=== PATIENT | female | born 1995 | race Caucasian/White ===

== ENCOUNTER 2016-07-17 05:02 | Emergency (ER) | payer BC ==
[2016-07-17 05:27] LABS: Urine Bacteria 1+ (Absent); Urine Bilirubin Negative (Negative); Urine Glucose Negative (Negative); Urine Nitrite Negative (Negative)
[2016-07-17 05:57] LABS: Manual Entry Verification LOR0008; UR Preg Internal Control QC Line Present
[2016-07-17 06:47] LABS: Urine Bacteria Absent (Absent); Urine Bilirubin Negative (Negative); Urine Glucose Negative (Negative); Urine Nitrite Negative (Negative)
[2016-07-17] MEDS ORDERED: Ciprofloxacin TAB* 500 MG PO ONE (06:52)
--- NOTE | 2016-07-17 06:56 | ED ---
I, Oh,Daniel, scribed for Guerrero Zepeda MD on 07/17/16 at 0627 . GI/ HPI - HPI Summary HPI Summary: This 21 y/o female presents to ED for acute on recurrent UTI since 2 days ago. She reports burning with urination, increased urinary frequency, and burning/ itching in genital area since 2 days ago. She decided to visit ED when symptoms worsens about 2 hours ago and wasn't able to tolerate the symptoms. Pt denies any back pain and any likelihood of . LMP is a month ago. PMHx is significant for recurrent UTI, appy, and asthma. Rare drinker and nonsmoker. FHx is positive for HTHN to father. - History of Current Complaint Chief Complaint: EDUrogenitalProblems Time Seen by Provider: 07/17/16 06:02 Stated Complaint: POSS UTI Hx Obtained From: Patient, Family/[employer] - mother present at bedside Onset/Duration: Started Days Ago - 2 days, Atraumatic, Still Present Pain Intensity: 3 Location of Pain: Groin Pain Characteristics: Burning, Itching Associated Signs and Symptoms: Positive: Dysuria - burning with urination. Negative: Back Pain, Fever Aggravating Factor(s): Nothing Alleviating Factor(s): Nothing - Allergy/Home Medications Allergies/Adverse Reactions: Allergies Allergy/AdvReac Type Severity Reaction Status Date / Time Sulfamethoxazole AdvReac Vomiting Verified 10/13/15 20:13 w/Trimethoprim [From Bactrim] PMH/Surg Hx/FS Hx/Imm Hx History: Reports: Other Problems/Disorders - Recurrent UTI Infectious Disease History: No Infectious Disease History: Denies: History Other Infectious Disease, Traveled Outside the [place] in Last 30 Days - Family History Known Family History: Positive: Hypertension - father - Social History Alcohol Use: Rare Hx Substance Use: No Substance Use Type: Reports: None Hx Tobacco Use: No Smoking Status (MU): Never Smoked Tobacco Review of Systems Negative: Fever Positive: dysuria, frequency - increased, other - itching and burning All Other Systems Reviewed And Are Negative: Yes Physical Exam - Summary Physical Exam Summary: Vital signs: reviewed General: Patient is comfortable lying in stretcher with no signs of distress HEENT: within normal limits Lungs: CTA B/L CVS: S1 & S2 present. No murmurs appreciated. ABDOMEN: Soft, non-tender. No signs of distention. No rebound no guarding, and no masses palpated. Bowel sounds are normal. EXTREMITIES: FROM in all major joints, no edema, no cyanosis or clubbing. NEURO: Alert and oriented x 3. No acute neurological deficits. Speech is normal and follows commands. SKIN: Dry and warm Triage Information Reviewed: Yes Vital Signs On Initial Exam: Initial Vitals Temp Pulse Resp BP Pulse Ox 97.8 F 65 17 125/62 100 07/17/16 05:16 07/17/16 05:16 07/17/16 05:16 07/17/16 05:16 07/17/16 05:16 Vital Signs Reviewed: Yes Diagnostics - Vital Signs Vital Signs Temp Pulse Resp BP Pulse Ox 07/17/16 05:16 97.8 F 65 17 125/62 100 - Laboratory Lab Results: Lab Results 07/17/16 07/17/16 Range/Units 05:14 05:49 Urine Color Yellow Urine Appearance Cloudy Urine pH 5.0 (5-9) Ur Specific [place] 1.021 (1.010-1.030) Urine Protein Negative (Negative) Urine Ketones Negative (Negative) Urine Blood 2+ H (Negative) Urine Nitrate Negative (Negative) Urine Bilirubin Negative (Negative) Urine Urobilinogen Negative (Negative) Ur Leukocyte Esterase 3+ H (Negative) Urine WBC (Auto) 3+(>20/hpf) H (Absent) Urine RBC (Auto) 3+(>10/hpf) H (Absent) Ur Squamous Epith Cells Present H (Absent) Urine Bacteria 1+ H (Absent) Urine Glucose Negative (Negative) Urine Test Negative (Negative) Lab Statement: Any lab studies that have been ordered have been reviewed, and results considered in the medical decision making process. Re-Evaluation - Re-Evaluation First Eval Re-Evaluation Time: 06:55 GIGU Course/Dx - Course Assessment/Plan: This 21 y/o female presents to ED for acute on recurrent UTI since 2 days ago. She reports burning with urination, increased urinary frequency, and burning/itching in genital area since 2 days ago. She decided to visit ED when symptoms worsens about 2 hours ago and wasn't able to tolerate the symptoms. Pt denies any back pain and any likelihood of . LMP is a month ago. PMHx is significant for recurrent UTI, appendectomy, and asthma. Rare drinker and nonsmoker. FHx is positive for HTHN to father. UA. In the ED course she was Ciprofloxacin and she will be given a prescription for Ciprofloxacin for 5 days. I discussed all the findings and test results with the patient. Patient was instructed to return to the emergency room immediately if any of the symptoms return or worsens. Plan of care was discussed with the patient and understands and agrees. All questions were answered at patient satisfaction. There were no further complaints or concerns. Lung exam before discharge: CTA B/L. Good air exchange. No wheezing or crackles heard. CVS: S1 and S2 present. No murmurs appreciated. Patient is alert and oriented x 3. Patient is hemodynamically stable. Patient will be discharged home with follow up PCP in the next 2-3 days - Diagnoses Differential Diagnoses - Female: STD, Urinary Tract Infection, Vaginitis Provider Diagnoses: UTI (urinary tract infection) Discharge - Discharge Plan Condition: Stable Disposition: HOME Prescriptions: Ciprofloxacin TAB* [Cipro 500 MG TAB*] 500 mg PO BID #5 tab Patient Education Materials: Urinary Tract Infection in Women (ED), Ciprofloxacin (By mouth) Referrals: [facility] [Outside] - 2 Days The documentation as recorded by the Javed burgos Soohyun accurately reflects the service I personally performed and the decisions made by me, Guerrero Zepeda MD.
[2016-07-17 07:08] VITALS: BP 114/58
--- NOTE | 2016-07-19 06:44 | PN ---
Progress Note - Progress Note Note: Preliminary urine culture results grew few E.coli. Patient was treated with Ciprofloxacin due to urinalysis results significant for UTI. Will wait for final culture results. No changes needed at this time.
== END 2016-07-17 07:06 | disposition home or self-care (01) ==
LOC: ED 05:02
DX: N39.0 Urinary tract infection, site not specified (principal); R30.0 Dysuria
CPT/HCPCS: 81003; 81015; 81025; 87077; 87086; 87186; 99282; A9270-GY

== ENCOUNTER 2016-09-15 21:24 | Emergency (ER) | payer BC ==
[2016-09-15] MEDS ORDERED: DOXYcycline CAP(*) 100 MG PO ONE (22:24)
[2016-09-15 22:47] VITALS: BP 126/64
--- NOTE | 2016-09-16 00:04 | ED ---
Virgilio Mcnamara Alok, scribed for Josseline Garnett MD on 09/15/16 at 2228 . Skin Complaint - HPI Summary HPI Summary: 21F presents to the ED for a tick bite, first discovered this evening on the right leg but most likely exposed at 1300 this afternoon. Pt states she removed the tick bite herself. Tick is not available for observation. - History of Current Complaint Chief Complaint: EDExtremityLower Time Seen by Provider: 09/15/16 22:20 Stated Complaint: TICK BITE Hx Obtained From: Patient Hx Last Menstrual Period: 08/04/14 Onset/Duration: Started Hours Ago, Atraumatic, Resolved Skin Exposure Onset/Duration: Hours Ago Timing: Constant Onset Severity: Moderate Current Severity: Moderate Pain Intensity: 0 Pain Scale Used: 0-10 Numeric Skin Location: Leg Character: Redness Aggravating Symptom(s): Nothing Alleviating Symptom(s): Nothing Associated Signs & Symptoms: Negative Related History: Insect Bite/Sting - Allergy/Home Medications Allergies/Adverse Reactions: Allergies Allergy/AdvReac Type Severity Reaction Status Date / Time Sulfamethoxazole AdvReac Vomiting Verified 09/15/16 21:29 w/Trimethoprim [From Bactrim] PMH/Surg Hx/FS Hx/Imm Hx History: Reports: Other Problems/Disorders - Recurrent UTI Infectious Disease History: Denies: History Other Infectious Disease, Traveled Outside the [place] in Last 30 Days - Family History Known Family History: Positive: Hypertension - father - Social History Alcohol Use: Rare Hx Substance Use: No Substance Use Type: Reports: None Hx Tobacco Use: No Smoking Status (MU): Never Smoked Tobacco Review of Systems Negative: Fever Positive: Other - tick bite right leg All Other Systems Reviewed And Are Negative: Yes Physical Exam Triage Information Reviewed: Yes Vital Signs On Initial Exam: Initial Vitals Temp Pulse Resp BP Pulse Ox 98.3 F 85 16 134/68 100 09/15/16 21:25 09/15/16 21:25 09/15/16 21:25 09/15/16 21:25 09/15/16 21:25 Vital Signs Reviewed: Yes Appearance: Positive: Well-Appearing, No Pain Distress Skin: Positive: Warm, Skin Color Reflects Adequate Perfusion, Dry, Other - small erythematous region right leg Eyes: Positive: EOMI, MIRIAM ENT: Positive: Pharynx normal, TMs normal Neck: Positive: Supple, Nontender Respiratory/Lung Sounds: Positive: Clear to Auscultation, Breath Sounds Present. Negative: Rales, Rhonchi, Wheezes Cardiovascular: Positive: RRR, Other - no gallop. Negative: Murmur, Rub Abdomen Description: Positive: Nontender, Soft, Other: - no rebound. Negative: Distended, Guarding Musculoskeletal: Positive: Strength/ROM Intact. Negative: Edema Left, Edema Right Neurological: Positive: Sensory/Motor Intact, Alert, Oriented to Person Place, Time, CN Intact II-III Psychiatric: Positive: Affect/Mood Appropriate Diagnostics - Vital Signs Vital Signs Temp Pulse Resp BP Pulse Ox 09/15/16 21:25 98.3 F 85 16 134/68 100 - Laboratory Lab Statement: Any lab studies that have been ordered have been reviewed, and results considered in the medical decision making process. Course/Dx - Course Course Of Treatment: 21 yo female with tic bite (tic already removed) pt given prophylactic dose of doxy - Diagnoses Provider Diagnoses: Tick bite Discharge - Discharge Plan Condition: Stable Disposition: HOME Patient Education Materials: Tick Bite (ED) Referrals: No Primary Care Phys,NOPCP [Primary Care Provider] - The documentation as recorded by the Virgilio burgos Alok accurately reflects the service I personally performed and the decisions made by , Josseline Garnett MD.
== END 2016-09-15 22:46 | disposition home or self-care (01) ==
LOC: ED 21:24
DX: S80.861A Insect bite (nonvenomous), right lower leg, initial encounter (principal); W57.XXXA Bitten or stung by nonvenomous insect and other nonvenomous arthropods, initial encounter; Y93.9 Activity, unspecified; Y92.9 Unspecified place or not applicable; Z88.2 Allergy status to sulfonamides; Z87.440 Personal history of urinary (tract) infections
CPT/HCPCS: 99282; A9270-GY

== ENCOUNTER 2019-01-21 01:42 | Emergency (ER) | payer BC ==
--- OUTSIDE RECORDS SUMMARY | 2019-01-21 01:55 | XMS REPORT | Continuity of Care Document ---
:1995 External Reference #:[id number] Author Name Malu Morrison O.D. Address [address] [place] [id number] Care Team Providers Name Role Phone Ramos Pacheco M.D. 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 Onset: 01/16/2015 Vitreous degeneration Malu Morrison O.D. Onset: 01/16/2015 Social History Type Date Description Comments Sex Unknown ETOH Use Denies alcohol use Tobacco Use Start: Unknown Patient has never smoked Recreational Drug Use Denies Drug Use Smoking Status Reviewed: 10/18/18 Patient has never smoked Allergies, Adverse Reactions, Alerts Description No Known Drug Allergies Medications Active Medications SIG Qnty Indications Ordering Provider Date Tri-Sprintec Unknown 0.18/0.215/0.25 mg-35 mcg Tablets Immunizations Description No Information Available Vital Signs Description No Information Available Results Description No Information Available Procedures Date Code Description Status 11/15/2018 104 Insertion And Removal Training Completed 10/18/2018 98626 Determination Of Refractive State Completed 10/18/2018 31545 Est Patient Comprehensive Exam Completed 10/18/2018 102 Level 2 Fit RGP/Soft Toric/Bifocal/Monovision/Extended Completed Wear Medical Devices Description No Information Available Encounters Description No Information Available Assessments Date Code Description Provider 10/18/2018 H52.13 Myopia, bilateral Malu Morrison O.D. 10/18/2018 H43.813 Vitreous degeneration, bilateral Malu Morrison O.D. Plan of Treatment No Information Available Functional Status Description No Information Available Mental Status Description No Information Available Referrals Description No Information Available
[2019-01-21] MEDS ORDERED: NS 0.9% 1000 ML** 1,000 ML IV.FLUID IV ONE (02:09)
[2019-01-21] MEDS ORDERED: Ondansetron INJ* 2 MG/ML VIAL IV ONE (02:10)
--- NOTE | 2019-01-21 02:24 | ED ---
Complex/Multi-Sys Presentation - HPI Summary HPI Summary: Patient is a 23 y/o F presenting to [facility] with complaints of fever, N/V/D, abdominal pain and fatigue. Patient had arrived home from [place] 01/20/19. She has only had one episode of diarrhea. She notes that she has multiple bug bites after having been in the jungle in [place]. Patient denies daily medications and PMHx. On triage, pain is rated 2/10. Home medications and allergies are reviewed. - History Of Current Complaint Chief Complaint: EDNauseaVomitDiarrh Hx Obtained From: Patient Onset/Duration: Still Present Timing: Constant Severity Currently: Mild Location: Pain At: - abdomen Associated Signs And Symptoms: Positive: Nausea, Vomiting, Diarrhea, Abdominal Pain, Fever, Other - fatigue - Allergies/Home Medications Allergies/Adverse Reactions: Allergies Allergy/AdvReac Type Severity Reaction Status Date / Time sulfamethoxazole AdvReac Vomiting Verified 01/21/19 02:36 [From Bactrim] trimethoprim [From Bactrim] AdvReac Vomiting Verified 01/21/19 02:36 PMH/Surg Hx/FS Hx/Imm Hx Endocrine/Hematology History: Denies: Hx Diabetes Cardiovascular History: Denies: Hx Hypertension, Hx Pacemaker/ICD History: Reports: Other Problems/Disorders - Recurrent UTI Denies: Hx Dialysis, Hx Renal Disease Sensory History: Denies: Hx Hearing Aid Psychiatric History: Denies: Hx Panic Disorder - Surgical History Surgery Procedure, Year, and Place: APPENDECTOMY Infectious Disease History: No Infectious Disease History: Reports: Traveled Outside the [place] in Last 30 Days Denies: History Other Infectious Disease - Family History Known Family History: Positive: Hypertension - father - Social History Alcohol Use: Rare Hx Substance Use: No Substance Use Type: Reports: None Hx Tobacco Use: No Smoking Status (MU): Never Smoked Tobacco Review of Systems Positive: Fever, Fatigue Positive: Abdominal Pain, Vomiting, Diarrhea, Nausea All Other Systems Reviewed And Are Negative: Yes Physical Exam - Summary Physical Exam Summary: Appearance: Well-appearing, Well-nourished, lying in bed comfortably. Skin: Warm, dry, no obvious rash Eyes: sclera anicteric, no conjunctival pallor ENT: mucous membranes moist, pharynx appears normal Neck: Supple, nontender Respiratory: Clear to auscultation, no signs of respiratory distress Cardiovascular: Tachycardia. Normal S1, S2. No murmurs. Normal distal pulses in tibial and radial bilaterally. Abdomen: Soft, nontender, normal active bowel sounds present Musculoskeletal: Normal, Strength/ROM Intact Neurological: A&Ox3, awake and alert, mentation is normal, speech is fluent and appropriate Psychiatric: affect is normal, does not appear anxious or depressed Triage Information Reviewed: Yes Vital Signs On Initial Exam: Initial Vitals Temp Pulse Resp BP Pulse Ox 101.1 F 121 16 132/85 99 01/21/19 01:43 01/21/19 01:43 01/21/19 01:43 01/21/19 01:43 01/21/19 01:43 Vital Signs Reviewed: Yes Procedures - Sedation Patient Received Moderate/Deep Sedation with Procedure: No Diagnostics - Vital Signs Vital Signs Temp Pulse Resp BP Pulse Ox 01/21/19 01:43 101.1 F 121 16 132/85 99 - Laboratory Result Diagrams: 01/21/19 02:26 01/21/19 02:26 Lab Statement: Any lab studies that have been ordered have been reviewed, and results considered in the medical decision making process. Re-Evaluation - Re-Evaluation First Eval Re-Evaluation Time: 04:03 Change: Improved Comment: Patient reports improvement in Sx after medications. She is discharged to home with prescription for Zofran and PCP follow up. Complex Multi-Symp Course/Dx Course Of Treatment: Patient is a 23 y/o F presenting to [facility] with complaints of fever, N/V/D, abdominal pain and fatigue. Patient had arrived home from [place] 01/20/19. She has only had one episode of diarrhea. She notes that she has multiple bug bites after having been in the jungle in [place]. Patient denies daily medications and PMHx. Patient had temp of 101.1 F on vitals. On physical exam, tachycardia is noted. Bloodwork was obtained and WNL with exception of absolute lymphs 0.5, sodium 134. UA showed ascorbic acid. Blood cultures sent. During ED course, patient received Zofran 8 mg IV, Tylenol 650 mg , Zithromax 1000 mg, and fluids. Patient reports improvement in Sx after medications. She is discharged to home with prescription for Zofran and PCP follow up. - Diagnoses Provider Diagnoses: Gastroenteritis Discharge ED - Sign-Out/Discharge Documenting (check all that apply): Patient Departure - discharge - Discharge Plan Condition: Improved Disposition: HOME Prescriptions: Ondansetron ODT TAB* [Zofran 4 MG Odt TAB*] 8 mg PO Q6H PRN #12 tab.odt PRN Reason: Nausea Patient Education Materials: Traveler's Diarrhea (ED), Gastroenteritis (ED) Referrals: Ramos Pacheco MD [Primary Care Provider] - 3 Days (if not better) - Billing Disposition and Condition Condition: IMPROVED Disposition: Home - Attestation Statements Document Initiated by Twyla: Yes Documenting Scribe: QI BRITO Provider For Whom Twyla is Documenting (Include Credential): MICHELA VASQUEZ MD Scribe Attestation: QI Mcnamara scribed for MICHELA VASQUEZ MD on 01/22/19 at 0332. Scribe Documentation Reviewed: Yes Provider Attestation: The documentation as recorded by the QI burgos accurately reflects the service I personally performed and the decisions made by me, MICHELA VASQUEZ MD Status of Scribe Document: Viewed
[2019-01-21 02:38] LABS: Urine Appearance Clear; Urine Bilirubin Negative (Negative); Urine Blood Negative (Negative); Urine Color Yellow; Urine Glucose Negative (Negative); Urine Ketones Negative (Negative); Urine Nitrite Negative (Negative); Urine Protein Negative (Negative); Urine Specific Gravity 1.019 (1.010-1.030); Urine Urobilinogen Negative (Negative)
[2019-01-21 02:47] LABS: ABS Lymphocytes 0.5 10^3/ul (1.0-4.8); ABS Monocytes 0.4 10^3/ul (0-0.8); ABS Neutrophils 6.9 10^3/ul (1.5-7.7); Eosinophil % 0.5 %; Hematocrit 39 % (35-47); Hemoglobin 13.2 g/dL (12.0-16.0); Lymphocyte % 5.8 %; Mean Corpuscular HGB Conc 34 g/dL (31-36); Mean Corpuscular Hemoglobin 30 pg (27-31); Mean Corpuscular Volume 89 fL (80-97); Mean Platelet Volume 8.3 fL (7.4-10.4); Platelet Count 237 10^3/uL (150-450); Red Blood Count 4.35 10^6 /uL (3.70-4.87); Red Cell Distribution Width 12 % (10-15); White Blood Count 7.8 10^3/uL (3.5-10.8)
[2019-01-21 02:51] LABS: Albumin 4.1 g/dL (3.2-5.2); Albumin/Globulin Ratio 1.3 (1-3); BUN/Creatinine Ratio 13.1 (8-20); Calcium 9.1 mg/dL (8.6-10.3); EGFR Non-African American 82.6 (>60); Globulin 3.2 g/dL (2-4); Potassium 3.5 mmol/L (3.5-5.0); Total Bilirubin 0.5 mg/dL (0.2-1.0); Total Protein 7.3 g/dL (6.4-8.9)
[2019-01-21] MEDS ORDERED: Acetaminophen TAB* 325 MG PO ONE (04:00)
[2019-01-21] MEDS ORDERED: Azithromycin TAB* 250 MG PO ONE (04:10)
[2019-01-21 04:24] VITALS: BP 119/64
== END 2019-01-21 04:24 | disposition home or self-care (01) ==
LOC: ED 01:42
DX: K52.9 Noninfective gastroenteritis and colitis, unspecified (principal); Z88.2 Allergy status to sulfonamides; Z88.8 Allergy status to other drugs, medicaments and biological substances
CPT/HCPCS: 36415; 80053; 81003; 83605; 85025; 87040; 96361; 96374; 99283; A9270-GY; J2405

== ENCOUNTER 2019-07-10 21:49 | Emergency (ER) | payer BC ==
--- OUTSIDE RECORDS SUMMARY | 2019-07-10 22:04 | XMS REPORT | Continuity of Care Document ---
:1995 External Reference #:[id number] Author Name Gabby Olsen MD (transmitted by agent of provider Neha Middleton) Address [address] [place] [address] Care Team Providers Name Role Phone Ramos Pacheco M.D. - Family Care Team Information Aircrewman [phone] Medicine Problems Active Problems Provider Date Chronic vulvitis Gabby Olsen MD Onset: 05/16/2019 Chronic lichen planus Gabby Olsen MD Onset: 05/16/2019 Social History Type Date Description Comments Sex Unknown Tobacco Use Start: Unknown Never Smoked Cigarettes Smoking Status Reviewed: 05/09/19 Never Smoked Cigarettes ETOH Use Rarely consumes alcohol approx 1 q month Recreational Drug Use Denies Drug Use Tobacco Use Start: Unknown Patient has never smoked Exercise Type/Frequency Exercises sporadically Seat Belt/Car Seat Always uses seat belt Allergies, Adverse Reactions, Alerts Active Allergies Reaction Severity Comments Date Bactrim Nausea and Vomiting 08/01/2016 Inactive Allergies NKDA 11/26/2013 Medications Active Medications SIG Qnty Indications Ordering Date Provider Clobetasol Propionate apply thin layer 30gm Gabby 03/14/2019 to area daily for MD Raúl 0.05% Ointment 2 weeks then qod for 2 weeks then 2x per weekfor 2 weeks Clotrimazole/Betameth apply to area 45gm Gabby 02/05/2019 asone Dipropionate twice a day for 2 MD Raúl weeks 1-0.05% Cream Clobetasol Propionate use sparingly to 60units Gabby 05/01/2015 affected area MD Raúl 0.05% Ointment twice weekly Tri-Sprintec take 1 tablet by 84tabs Gabby 11/13/2014 mouth every day MD Raúl 0.18/0.215/0.25 mg-35 mcg Tablets Medications Administered in Office Medication SIG Qnty Indications Ordering Provider Date PT SCRN Tbco Id as Non User Gabby Olsen MD 05/09/2019 Injection PT SCRN Tbco Id as Non User Gabby Olsen MD 03/14/2019 Injection PT SCRN Tbco Id as Non User Gabby Olsen MD 02/05/2019 Injection No PT Tbco SCRN RNG JAYLA Belcher 12/14/2017 Injection PT SCRN Tbco Id as Non User JAYLA Belcher 12/14/2017 Injection Immunizations Description No Information Available Vital Signs Date Vital Result Comment 05/09/2019 3:55pm BP Systolic 124 mmHg BP Diastolic 72 mmHg Height 69.25 inches 5'9.25" Weight 158.00 lb BMI (Body Mass Index) 23.2 kg/m2 Last Menstrual Period [id number] 03/14/2019 11:56am BP Systolic 130 mmHg BP Diastolic 62 mmHg Height 69.25 inches 5'9.25" Weight 158.00 lb BMI (Body Mass Index) 23.2 kg/m2 Last Menstrual Period [id number] 0 Parity 0 Results Test Acquired Date Facility Test Result H/L Range Note Laboratory test 03/14/2019 [facility] Culture Genital SEE RESULT [address] [place] [address] & Sensitivity BELOW [phone] Laboratory test 02/05/2019 [facility] Cytology SEE RESULT 2 , [address] [place] [address] BELOW [phone] Genital Culture SEE RESULT BELOW 4 1 SEE RESULT BELOW Name: CARMELO MCGREGOR : [address]: Gabby Olsen MD Acct: [id number] Unit: [id number] AGE: 23 Location: [facility] Re03/14/19 SEX: F Status: REG REF SPEC: [id number] LOIDA: 03/14/19 [facility] DR: Gabby Olsen MD REQ: [id number] RECD: 03/14/19 STATUS: COMP _ SOURCE: VAGINAL SPDESC: ORDERED: Genital Culture COMMENTS: [id number] Procedure Result Reported Site Genital Culture Final 03/16/19- 1231 ML Organism 1 NORMAL GEORGE Quantity 2+ Routine genital cultures do not include selective agar for Neisseria gonorrhoeae. Molecular testing offers better test sensitivity and therefore is the preferred test methodology for identifying this organism. * ML - Main Lab . END OF REPORT DEPARTMENT OF PATHOLOGY, [address] [place] [address] Shane Whitley M.D. Director [facility] # [id number] 2 [id number] 3 SEE RESULT BELOW Name: CARMELO INFANTE : [address]: Gabby Olsen MD Acct: [id number] Unit: [id number] AGE: 23 Location: [facility] Re02/05/19 SEX: F Status: REG REF SPEC: [id number] LOIDA: 02/05/19-1146 [facility] DR: Gabby Olsen MD REQ: [id number] RECD: 02/05/19 STATUS: TERRENCE RICK DR: Ramos Pacheco MD _ ORDERED: TP IMAGE ANALYS COMMENTS: [id number] FINAL DIAGNOSIS Negative for Intraepithelial lesion or Malignancy SPECIMEN(S) RECEIVED A. Ectocervical/Endocervical CYTOLOGY ADEQUACY Specimen Adequacy: Satisfactory of evaluation Transformation zone component identified CYTOLOGY PATIENT INFORMATION Patient Information: HPV: Thin Layer Pap Test w/reflex to high risk HPV RNA testing when ASCUS Actual Specimen Date: 02/05/19 Last Menstrual Date: 01/29/19 Date of Last Specimen: 12/14/17 Signed by and Reported on: NEIL Gonzalez (ASCP) [id number] This Pap test was evaluated with the assistance of the [employer] Test Imaging System. Due to cytologic findings at the sludge control operator microscope, comprehensive manual rescreening by a Fruit Trimmer may be required. The Pap Smear is a screening test designed to aid in the detection of premalignant and malignant conditions of the uterine cervix. It is not a diagnostic procedure and should not be used as the sole means of detecting cervical cancer. Both false- positive and false- negative reports do occur. Depending on your risk status, a Pap smear should be obtained and evaluated every 1-3 years. END OF REPORT DEPARTMENT OF PATHOLOGY, [address] [place] [address] Shane Whitley M.D. Director [facility] # [id number] 4 SEE RESULT BELOW Name: CARMELO INFANTE : [address]: Gabby Olsen MD Acct: [id number] Unit: [id number] AGE: 23 Location: [facility] Re02/05/19 SEX: F Status: REG REF SPEC: [id number] LOIDA: 02/05/198764 SUBM DR: Gabby Olsen MD REQ: [id number] RECD: 02/05/19 STATUS: COMP _ SOURCE: VAGINAL SPDESC: ORDERED: Genital Culture COMMENTS: [id number] Procedure Result Reported Site Genital Culture Final 02/07/19- 0900 ML Organism 1 NORMAL GEORGE Quantity 2+ Routine genital cultures do not include selective agar for Neisseria gonorrhoeae. Molecular testing offers better test sensitivity and therefore is the preferred test methodology for identifying this organism. * ML - Main Lab . END OF REPORT DEPARTMENT OF PATHOLOGY, [address] [place] [address] Shane Whitley M.D. Director [facility] # [id number] Procedures Description No Information Available Medical Devices Description No Information Available Encounters Type Date Location Provider Dx Diagnosis Office Visit 05/09/2019 [facility] Gabby Olsen N76.3 Subacute and 3:45p chronic vulvitis Office Visit 03/14/2019 [facility] Gabby Olsen N76.3 Subacute and 11:45a chronic vulvitis Office Visit 02/05/2019 [facility] Gabby Olsen, Z01.419 Encntr for python django developer exam 11:30a (general) (routine) w/o abn findings B37.3 Candidiasis of vulva and vagina Assessments Date Code Description Provider 05/09/2019 N76.3 Subacute and chronic vulvitis Gabby Olsen MD 03/14/2019 N76.3 Subacute and chronic vulvitis Gabby Olsen MD 02/05/2019 Z01.419 Encounter for gynecological examination Gabby Olsen MD (general) (routine) without abnormal findings 02/05/2019 B37.3 Candidiasis of vulva and vagina Gabby Olsen MD Plan of Treatment Future Appointment(s):07/30/2019 10:00 am - Gabby Olsen MD at [facility] Uimzpw5305/09/2019 - Gabby Olsen MDN76.3 Subacute and chronic vulvitisComments:Pt has been treated for vulvitis that was thought to be related with yeast and now most recently wastreated with steroid wit some improvement. Pt notes that she is willing to consider referral to field sales manager to see if there is something topical she is exposing skin to that results in swelling and vuvlar discomfort. Functional Status Description No Information Available Mental Status Description No Information Available Referrals Refer to Dr Reason for Referral Status Appt Date [facility] allergy testing / vulvar itching and H/o Scheduled allergies [address] [facility] [address] [phone]
--- NOTE | 2019-07-10 23:01 | ED ---
Laceration/Wound HPI - HPI Summary HPI Summary: 24-year-old female presents with left index finger laceration today. She is cut a bagel. The area continues to bleed. She is not on blood thinner. Has no medical conditions. Her tetanus is up-to-date. She has full range of motion of the finger. No numbness or tingling. - History of Current Complaint Stated Complaint: LT INDEX FINGER LAC Time Seen by Provider: 07/10/19 22:48 Hx Last Menstrual Period: 08/04/14 Pain Intensity: 0 - Allergy/Home Medications Allergies/Adverse Reactions: Allergies Allergy/AdvReac Type Severity Reaction Status Date / Time sulfamethoxazole AdvReac Vomiting Verified 01/21/19 02:36 [From Bactrim] trimethoprim [From Bactrim] AdvReac Vomiting Verified 01/21/19 02:36 Home Medications: Home Medications Control 1 tab PO DAILY 08/26/14 [History Confirmed 01/21/19] Ondansetron ODT TAB* [Zofran 4 MG Odt TAB*] 8 mg PO Q6H PRN #12 tab.odt [Rx] PMH/Surg Hx/FS Hx/Imm Hx Endocrine/Hematology History: Denies: Hx Diabetes Cardiovascular History: Denies: Hx Hypertension, Hx Pacemaker/ICD History: Reports: Other Problems/Disorders - Recurrent UTI Denies: Hx Dialysis, Hx Renal Disease Sensory History: Denies: Hx Hearing Aid Psychiatric History: Denies: Hx Panic Disorder - Surgical History Surgery Procedure, Year, and Place: APPENDECTOMY Infectious Disease History: No Infectious Disease History: Denies: History Other Infectious Disease, Traveled Outside the [place] in Last 30 Days - Family History Known Family History: Positive: Hypertension - father - Social History Alcohol Use: Rare Hx Substance Use: No Substance Use Type: Reports: None Hx Tobacco Use: No Smoking Status (MU): Never Smoked Tobacco Review of Systems Negative: Fever Negative: Chest Pain Negative: Shortness Of Breath Positive: Other - left index finger lac All Other Systems Reviewed And Are Negative: Yes Physical Exam Triage Information Reviewed: Yes Vital Signs On Initial Exam: Initial Vitals Temp Pulse Resp BP Pulse Ox 98.2 F 92 16 150/92 100 07/10/19 21:51 07/10/19 21:51 07/10/19 21:51 07/10/19 21:51 07/10/19 21:51 Vital Signs Reviewed: Yes Appearance: Positive: Well-Appearing Skin: Positive: Warm, Dry, Other - 1 1/2cm flap like laceration to left index finger Head/Face: Positive: Normal Head/Face Inspection Eyes: Positive: Normal, Conjunctiva Clear ENT: Positive: Pharynx normal Respiratory/Lung Sounds: Positive: Clear to Auscultation, Breath Sounds Present Cardiovascular: Positive: Normal, RRR Musculoskeletal: Positive: Strength/ROM Intact - left index finger, Other - capillary refill<2 secs Neurological: Positive: Normal Psychiatric: Positive: Normal Procedures - Sedation Patient Received Moderate/Deep Sedation with Procedure: No - Laceration/Wound Repair 1 Location: Other - left index finger Description: Irregular Length, Depth and Shape: 1 1/2cm flap like Irrigated w/ Saline (ccs): 200 Closure: Skin Adhesive Suture Type: Prolene Number of Sutures: 2 Diagnostics - Vital Signs Vital Signs Temp Pulse Resp BP Pulse Ox 07/10/19 21:51 98.2 F 92 16 150/92 100 - Laboratory Lab Statement: Any lab studies that have been ordered have been reviewed, and results considered in the medical decision making process. Laceration Repair Course/Dx - Course Course Of Treatment: 24-year-old female presents with left index finger laceration today. She is cut a bagel. The area continues to bleed. She is not on blood thinner. Has no medical conditions. Her tetanus is up-to-date. She has full range of motion of the finger. No numbness or tingling. On exam has a 1 1/2cm flap-like laceration that cleaned and closed with 2 sutures and some glue. Told keep very clean and dry. Patient understands and agrees the plan. - Differential Dx Differental Diagnoses: Abrasion, Avulsion, Laceration - Clinical Impression Provider Diagnoses: Laceration of left index finger Discharge ED - Sign-Out/Discharge Documenting (check all that apply): Patient Departure - Discharge Plan Condition: Good Disposition: HOME Patient Education Materials: Care For Your Stitches (ED) Referrals: Ramos Pacheco MD [Primary Care Provider] - Additional Instructions: Take Tylenol or ibuprofen for pain every 6 hours as needed Keep area clean and dry for 24 hours Return to ED or primary in 8-10 days to have sutures removed Return to ED if develop signs of infection such as fever, spreading redness, or pus. - Billing Disposition and Condition Condition: GOOD Disposition: Home - Attestation Statements Provider Attestation: I was available for consult. This patient was seen by the STEVEN. The patient was not presented to, seen by, or examined by me. Edison Leon MD
[2019-07-10 23:45] VITALS: BP 127/91
== END 2019-07-10 23:44 | disposition home or self-care (01) ==
LOC: ED 21:49
DX: S61.211A Laceration without foreign body of left index finger without damage to nail, initial encounter (principal); W45.8XXA Other foreign body or object entering through skin, initial encounter; Y93.G3 Activity, cooking and baking; Y92.9 Unspecified place or not applicable; Z88.2 Allergy status to sulfonamides; Z88.8 Allergy status to other drugs, medicaments and biological substances; Z79.3 Long term (current) use of hormonal contraceptives; Z79.899 Other long term (current) drug therapy
CPT/HCPCS: 99281

== ENCOUNTER 2021-12-31 01:52 | Inpatient (IN) ==
[2021-12-31] MEDS ORDERED: Buffered Lidocaine 1% SYRIN 1 ml INTRADERM ONE (02:23)
[2021-12-31] MEDS ORDERED: Lactated Ringers 1000 ml BAG 1,000 ML IV ONE ×2 (02:23→06:05)
[2021-12-31] MEDS ORDERED: Penicillin G Potassium IV 5,000,000 UNITS in NS 0.9% 100 ml BAG 100 ML IVPB ONE (02:23)
[2021-12-31] MEDS ORDERED: Penicillin G Potassium IV 3,000,000 UNITS in NS 0.9% 100 ml BAG 100 ML IVPB SCH (03:00)
[2021-12-31] MEDS ORDERED: Lactated Ringers 1000 ml BAG 1,000 ML IV SCH ×4 (03:00→18:00)
[2021-12-31 03:25] LABS: ABS Basophils 0.1 10^3/ul (0-0.2); ABS Eosinophils 0.1 10^3/ul (0-0.6); ABS Lymphocytes 1.7 10^3/ul (1.0-4.8); ABS Monocytes 0.8 10^3/ul (0-0.8); ABS Neutrophils 9.4 10^3/ul (1.5-7.7); Eosinophil % 0.9 %; Hematocrit 34 % (35-47); Hemoglobin 10.7 g/dL (12.0-16.0); Lymphocyte % 14.1 %; Mean Corpuscular HGB Conc 32 g/dL (31-36); Mean Corpuscular Hemoglobin 28 pg (27-31); Mean Corpuscular Volume 87 fL (80-97); Mean Platelet Volume 8.2 fL (7.4-10.4); Platelet Count 305 10^3/uL (150-450); Red Blood Count 3.88 10^6 /uL (3.70-4.87); Red Cell Distribution Width 14 % (10-15)
[2021-12-31 04:18] LABS: Urine Benzodiazepine Screen None Detected (None Detect); Urine Cannabinoids Screen None Detected (None Detect); Urine Opiates Screen None Detected (None Detect)
[2021-12-31] MEDS ORDERED: Lidocaine 1.5% EPI 1:200,000 30 ML SDV ONE (05:18)
[2021-12-31] MEDS ORDERED: OBEPIDURAL (200 ML) 200 ML EPIDURAL ONE (05:18)
[2021-12-31] MEDS: Lactated Ringers 1000 ml BAG 1,000 ML IV SCH ×2 (05:55→13:54)
[2021-12-31] MEDS ORDERED: Phenylephrine 40 mcg/mL 10mL (400mcg) SYRINGE IV PUSH PRN ×2 (06:05)
[2021-12-31] MEDS ORDERED: Lactated Ringers 1000 ml BAG 500 ML IV PRN (06:05)
[2021-12-31] MEDS ORDERED: Sodium Citrate/Citric Acid LIQ 15 ML UDC PO PRN (06:05)
[2021-12-31] MEDS ORDERED: OBEPIDURAL (200 ML) 200 ML EPIDURAL SCH (07:00)
[2021-12-31] MEDS: Penicillin G Potassium IV 3,000,000 UNITS in NS 0.9% 100 ml BAG 100 ML IVPB SCH ×3 (08:18→21:11)
[2021-12-31 10:27] LABS: Urine Appearance Clear; Urine Bacteria Absent (Absent); Urine Bilirubin Negative (Negative); Urine Blood Negative (Negative); Urine Color Straw; Urine Glucose Negative (Negative); Urine Ketones Negative (Negative); Urine Nitrite Negative (Negative); Urine Protein Negative (Negative); Urine Red Blood Cell Trace(0-2/hpf) (Absent); Urine Specific Gravity 1.013 (1.002-1.030); Urine Squamous Epithelial Cell Present (Absent); Urine Urobilinogen Negative (Negative); Urine White Blood Cell Absent (Absent)
[2021-12-31] MEDS ORDERED: Oxytocin in LR 20,000 MILLI.UNIT/1,000 ML BAG IV SCH ×2 (15:30→17:15)
[2021-12-31] MEDS ORDERED: Methylergonovine 0.2 mg AMPULE 1 ml AMP IM ONE (16:21)
[2021-12-31] MEDS: Dibucaine 1% OINT 28.35 GM TUBE PR PRN (18:21)
[2021-12-31] MEDS: Witch Hazel PAD JAR TOPICAL PRN (18:21)
[2021-12-31] MEDS ORDERED: Methylergonovine 0.2 mg AMPULE 1 ml AMP ONE (19:37)
[2021-12-31] MEDS ORDERED: Lidocaine 1% VIAL 10 MG/ML VIAL ONE (20:18)
[2022-01-01 06:43] LABS: ABS Eosinophils 0.1 10^3/ul (0-0.6); ABS Lymphocytes 1.6 10^3/ul (1.0-4.8); ABS Monocytes 0.7 10^3/ul (0-0.8); ABS Neutrophils 11.5 10^3/ul (1.5-7.7); Eosinophil % 1.1 %; Hematocrit 27 % (35-47); Hemoglobin 8.8 g/dL (12.0-16.0); Lymphocyte % 11.4 %; Mean Corpuscular HGB Conc 32 g/dL (31-36); Mean Corpuscular Hemoglobin 28 pg (27-31); Mean Corpuscular Volume 87 fL (80-97); Mean Platelet Volume 7.7 fL (7.4-10.4); Platelet Count 263 10^3/uL (150-450); Red Blood Count 3.13 10^6 /uL (3.70-4.87); Red Cell Distribution Width 14 % (10-15)
[2022-01-01] MEDS: Witch Hazel PAD JAR TOPICAL PRN (09:33)
[2022-01-01] MEDS: Dibucaine 1% OINT 28.35 GM TUBE PR PRN (09:33)
[2022-01-02 10:10] VITALS: BP 133/72
[2022-01-02] MEDS: Dibucaine 1% OINT 28.35 GM TUBE PR PRN (10:10)
[2022-01-02] MEDS ORDERED: Measles, Mumps,Rubella VACC 0.5 ML/VIAL SUBCUT ONE (11:15)
[2022-01-02] MEDS ORDERED: Varicella Virus Vaccine Live 0.5 ML VIAL SUBCUT ONE (11:15)
== END 2022-01-02 13:51 | disposition home or self-care (01) | DRG 560 ==
LOC: MCHOBOUT 01:52 → MCHOB 02:56
PROVIDERS: ADMIT Midwife; ATTEND Midwife